=== PATIENT | female | born 2000 | race Caucasian/White ===

== ENCOUNTER → 2020-03-30 10:24 | Outpatient (CLI) | payer OTHER, SELFPAY ==
--- NOTE | ~2020-03-30 | MR_ITS ---
EXAMINATION: MR foot LT wo con DATE: 03/30/2020 11:06 INDICATION: Stress fracture, left foot, initial encounter. TECHNIQUE: Magnetic resonance imaging (MRI) of the left foot was performed without intravenous contra st. Sequences included sagittal T1-weighted FSE and STIR FSE, long-axis PD-weighted FS FSE and PD-philip ghted FSE, and short-axis PD-weighted FS FSE and T1-weighted FSE. COMPARISON: Left foot radiographs 03/26/2020 FINDINGS: Bone alignment is normal. There is a nondisplaced oblique fracture of diaphysis of fourth m etatarsal with bone marrow edema and periosteal new bone formation. There is edema in the surrounding soft tissues. There is bone marrow edema in cuboid, likely stress reaction. Joint spaces are normal. Lisfranc ligament is normal. The flexor and extensor tendons are normal. IMPRESSION: 1. Healing stress fracture of diaphysis of fourth metatarsal. Reviewed, dictated and finalized at location A.
== END ==
PROVIDERS: PCP Pediatrics; Visit Provider Orthopaedic Surgery
DX: M84.375D Stress fracture, left foot, subsequent encounter for fracture with routine healing (principal)
CPT/HCPCS: 73718

== ENCOUNTER 2020-05-15 07:19 | Outpatient (CLI) | payer OTHER, SELFPAY ==
--- NOTE | ~2020-05-15 | DEXA_ITS ---
Bone Density Report Name: Sri Lai Age: 20 Sex: Female Ethnicity: White Date of : 2000 Indication: recent stress fracture of foot, non traumatic Referring Provider: SHANNAN PRIETO Study: Bone densitometry was performed. Exam Date: May 15, 2020 Accession number: [id number] Bone Density: Region BMD T-score Z-score Classification AP Spine (L1-L4) 0.841 -1.9 -1.6 Osteopenia World Health Organization criteria for BMD impression classify patients as: Normal (T-score at or above -1.0), Osteopenia (T-score between -1.0 and -2.5), or Osteoporosis (T-score at or below -2.5). Clinical Information Provided by Patient: Has had a low trauma fracture Patient maximum height was 63 Drinks caffeinated beverages Onset of menses at age 11 Number of children 0 Impression: A :Z-Score above -2.0 is normal according to the International Society for Clinical Densitometry. Discussion: Follow-Up: Reported by: [facility] on 05/15/2020 8:45:00 AM. Reviewed, dictated and finalized at location AAubrey BALDERRAMA
== END 2020-05-15 07:20 | disposition home or self-care (01) ==
PROVIDERS: PCP Pediatrics; Visit Provider Orthopaedic Surgery
DX: M81.0 Age-related osteoporosis without current pathological fracture (principal); M85.88 Other specified disorders of bone density and structure, other site
CPT/HCPCS: 77080

== ENCOUNTER 2020-07-01 11:20 | Emergency (ER) | payer OTHER, SELFPAY ==
--- NOTE | ~2020-07-01 | XR_ITS ---
EXAMINATION: XR chest 2V EXAM DATE: 07/01/2020 12:45 INDICATION: Midsternal chest pain. TECHNIQUE: Frontal and lateral projections of the chest obtained and reviewed. There is no prior radha dy for comparison. FINDINGS: The lungs are clear. There are no pleural effusions. The cardiomediastinal silhouette is within normal limits. There is no pneumothorax suspected. The bones and soft tissues are unremarkab le. IMPRESSION: No acute cardiopulmonary findings. Reviewed, dictated and finalized at location A. [employer]
[2020-07-01 11:32] VITALS: BP 129/85; PULSE 130; RESP 20; TEMP 36.8; O2SAT 100
--- NOTE | 2020-07-01 11:36 | ECG_ITS ---
Measurements Intervals [place] Rate: 123 P: 71 ND: 127 QRS: 79 QRSD: 78 T: 41 QT: 300 QTc: 430 Interpretive Statements SINUS TACHYCARDIA ABNORMAL ECG Electronically Signed On 07-01-2020 14:49:19 [employer] INTERN by Mike De La O D.O.
[2020-07-01 11:54] LABS: Basophils Absolute Auto 0.1 K/mm3 (0.0-0.1); Basophils Percent Auto 1.4 % (0.2-1.2); Eosinophils Absolute Auto 0.1 K/mm3 (0-0.3); Hematocrit 39.7 % (37.0-47.0); Hemoglobin 13.2 g/dL (12.0-15.0); Immature Granulocyte Absolute 0.02 K/mm3 (0.00-0.031); Immature Granulocyte Percent A 0.3 % (0-0.5); Lymphocytes Absolute Auto 2.27 K/mm3 (0.9-3.2); Mean Corpuscular HGB Conc 33.2 g/dl (32-36); Mean Corpuscular Hemoglobin 28.8 pg (26-34); Mean Corpuscular Volume 86.5 fl (80-100); Mean Platelet Volume 10.6 fl (7.4-10.4); Monocytes Absolute Auto 0.6 K/mm3 (0.1-0.6); Neutrophils Absolute Auto 3.3 K/mm3 (1.3-6.7); Neutrophils Percent Auto 52.3 % (45.5-73.1); Platelet Count Result 229 k/mm3 (150-375); Red Blood Count 4.59 M/mm3 (4.2-5.4); Red Cell Distribution Width 12.9 % (11.5-14.5); White Blood Count 6.3 K/mm3 (4.5-10.0)
[2020-07-01 11:59] LABS: Anion Gap 9 mmol/L (8-16); Blood Urea Nitrogen 7 mg/dL (7-17); Calcium 9.4 mg/dL (8.4-10.2); Carbon Dioxide 28 mmol/L (22-30); Chloride 102 mmol/L (98-107); Estimated CRCL calculation 82 ml/min; Estimated Glomerular Filt Rate > 60; Glucose 105 mg/dL (65-105); Sodium 139 mmol/L (137-145)
[2020-07-01 12:02] LABS: INR 1.1; Prothrombin Time 14.7 Seconds (11.1-14.7)
[2020-07-01 12:03] LABS: Partial Thromboplastin Time 33.2 SECONDS (22.3-36.8)
[2020-07-01 12:11] LABS: Troponin I < 0.012 ng/mL (0.000-0.034)
[2020-07-01 12:26] VITALS: BP 116/80; PULSE 117; RESP 20; TEMP 36.7
[2020-07-01] MEDS: SODIUM CHLORIDE 0.9% IV 1,000 ML 999 ML (12:41)
--- NOTE | 2020-07-01 13:03 | ED.ARRPALP ---
HPI - Arrhythmia/Palpitations General Chief Complaint: Arrhythmia/Palpitations Stated Complaint: palpitations/chest burning/lightheaded. Time Seen by Provider: 07/01/20 12:33 Source: patient Mode of arrival: ambulatory Limitations: no limitations History of Present Illness HPI narrative: This is a 20 year old female that presents to the ER for chest pain since last night. Reports burning pain in her chest that is constant. Reports she took ibuprofen with little relief. Pain is worse with breathing. Reports rapid heart rate as well. Reports family history of CAD. Denies fever, lower extremity edema, cough or shortness of breath. Related Data Home Medications Medication Instructions Recorded Confirmed amitriptyline 75 mg tablet 75 mg PO ONCE 03/28/20 04/24/20 calcium carbonate-vitamin D3 1 tablet PO DAILY 07/01/20 [Os-Paco 500 + D3] Allergies Allergy/AdvReac Type Severity Reaction Status Date / Time No Known Allergies Allergy Unknown Verified 07/01/20 11:39 Review of Systems Review of Systems: Narrative: CONSTITUTIONAL: Denies fever CARDIOVASCULAR: Reports chest pain, palpitations. Denies edema. RESPIRATORY: Denies cough or dyspnea. PSYCHIATRIC: Reports anxiety All systems reviewed & are unremarkable except as noted in HPI and below PMFSH Past Medical History Medical History (Updated 07/01/20 @ 15:33 by Winter Chowdary PA-C) Anxiety Headache Osteopenia Stress fracture of metatarsal bone Social History Social History Smoking status: Never smoker Alcohol intake: never Exam Narrative: Exam Narrative: GENERAL: Well-appearing, well-nourished, and in no acute distress. HEAD: Normocephalic, atraumatic. EYES: EOMI. ENT: Nares clear, no rhinorrhea or epistaxis. Mucous membranes moist. Oropharynx without tonsillar hypertrophy exudate or other lesions. Bilateral TMs pearly wise non-bulging NECK: Supple. No adenopathy or masses. No carotid bruits or JVD CHEST: Clear to auscultation. No respiratory distress. No wheezes rales or rhonchi HEART: Regular rate and rhythm. No murmur heard. Normal peripheral pulses. EXTREMITIES: Normal range of motion. No edema. SKIN: Warm, dry, no rash. NEURO: No focal deficits. Alert and oriented x3. PSYCH: Anxious Course Vital Signs Vital signs: Vital Signs Temperature 98.3 F 07/01/20 11:32 Pulse Rate 130 H 07/01/20 11:32 Respiratory Rate 20 07/01/20 11:32 Blood Pressure 129/85 07/01/20 11:32 Pulse Oximetry 100 07/01/20 11:32 Temperature 98.0 F 07/01/20 12:26 Pulse Rate 107 H 07/01/20 15:09 Respiratory Rate 18 07/01/20 15:09 Blood Pressure 109/75 07/01/20 15:09 Pulse Oximetry 99 07/01/20 15:09 MDM - Arrhythmia/Palpitations MDM Narrative Medical decision making narrative: Patient presents to the emergency department for chest pain since last night that is burning in nature. Reports improvement with Pepcid. Was also reporting palpitations. Patient's heart rate in the 120s on arrival. Sinus tachycardia. This responded to IV fluids. Heart rate now in the 90s. CBC and metabolic panel without concerning findings. D-dimer is not elevated. Chest x-ray is without acute changes. Baseline and 3-hour troponin are negative. Patient's heart score is a 1. Patient and family updated on case findings. She is stable and felt appropriate for further outpatient evaluation. She was given warnings to return to the ER Lab Data Attestation: I reviewed the patient's lab results. Result diagrams: 07/01/20 11:40 07/01/20 11:40 Labs: Lab Results 07/01/20 07/01/20 07/01/20 Range/Units 11:40 11:40 11:40 WBC 6.3 (4.5-10.0) K/mm3 RBC 4.59 (4.2-5.4) M/mm3 Hgb 13.2 (12.0-15.0) g/dL Hct 39.7 (37.0-47.0) % MCV 86.5 (80-100) fl MCH 28.8 (26-34) pg MCHC 33.2 (32-36) g/dl RDW 12.9 (11.5-14.5) % Plt Count 229 (150-375) k/mm3 MPV
[2020-07-01] MEDS: FAMOTIDINE 20 MG/2 ML VIAL IV PUSH (13:20)
[2020-07-01 14:01] LABS: D Dimer 0.27 ug/mL (<0.48)
[2020-07-01 15:09] VITALS: BP 109/75; PULSE 107; RESP 18; O2SAT 99
[2020-07-01 15:24] LABS: Troponin I < 0.012 ng/mL (0.000-0.034)
[2020-07-01 15:41] VITALS: BP 105/75; PULSE 101; RESP 20; O2SAT 99
== END 2020-07-01 15:43 | disposition home or self-care (01) ==
PROVIDERS: Emergency Medicine; Physician Assistant; Emergency Provider Emergency Medicine; PCP Pediatrics
DX: R07.9 Chest pain, unspecified (principal); M85.80 Other specified disorders of bone density and structure, unspecified site; F41.9 Anxiety disorder, unspecified; R00.0 Tachycardia, unspecified
CPT/HCPCS: 36415; 71046; 80048; 84484; 85025; 85380; 85610; 85730; 93005; 96361; 96365; 96375; 99284; J0131; J7030